=== PATIENT | female | born 1995 | race Caucasian/White ===

== ENCOUNTER 2017-05-19 15:26 | Emergency (ER) | payer OTHER ==
[~2017-05-19] VITALS: Ht 160 cm; Wt 68.0 kg
[2017-05-19 19:21] LABS: BASOPHIL % 0.4 % (0-2); PLATELET COUNT 275 x10^3mcL (130-400)
[2017-05-19 19:30] LABS: ALBUMIN 4.1 g/dL (3.4-5.0); ALKALINE PHOSPHATASE 82 U/L (46-116); ALT/SGPT 17 U/L (14-59); AST/SGOT 15 U/L (15-37); BILIRUBIN TOTAL 0.4 mg/dL (0.20-1.00); CALCIUM 9.1 mg/dL (8.5-10.1); CARBON DIOXIDE 32.4 mmol/L (21-32); CHLORIDE SERUM 103 mmol/L (98-107); CREATININE SERUM 0.6 mg/dL (0.6-1.0); GFR1 > 60 mL/min; GLUCOSE SERUM 86 mg/dL (74-106); POTASSIUM SERUM 4.1 mmol/L (3.5-5.1); SODIUM SERUM 142 mmol/L (136-145); TOTAL PROTEIN, SERUM 7.8 g/dL (6.4-8.2)
[2017-05-19 19:35] LABS: RED CELL DISTRIBUTION WIDTH 16.6 % (11.5-14.5)
[2017-05-19 22:59] VITALS: BP 110/65
== END 2017-05-19 22:45 | disposition home or self-care (01) ==
LOC: ED 15:26
PROVIDERS: Emergency Medicine
DX: K62.5 Hemorrhage of anus and rectum (principal)
CPT/HCPCS: J2270; J2405; J7030; Q9967

== ENCOUNTER 2018-11-30 04:18 | Emergency (ER) | payer OTHER ==
[~2018-11-30] VITALS: Ht 157.5 cm; Wt 87.1 kg
[2018-11-30 04:21] VITALS: Ht 157.5 cm; Wt 87.1 kg
[2018-11-30 06:52] VITALS: BP 117/72
== END 2018-11-30 06:52 | disposition home or self-care (01) ==
LOC: ED 04:18
DX: R07.89 Other chest pain (principal); M62.838 Other muscle spasm; Z86.2 Personal history of diseases of the blood and blood-forming organs and certain disorders involving the immune mechanism
CPT/HCPCS: J1885; J2060; Q0092

== ENCOUNTER 2020-01-27 15:04 | Emergency (ER) | payer OTHER, SELFPAY ==
[~2020-01-27] VITALS: Ht 160 cm; Wt 83.9 kg
[2020-01-27 15:05] VITALS: Ht 160 cm; Wt 83.9 kg
[2020-01-27 17:01] VITALS: BP 113/74
== END 2020-01-27 17:01 | disposition home or self-care (01) ==
LOC: ED 15:04
DX: U07.1 COVID-19 (principal)
CPT/HCPCS: U0003-CS